=== PATIENT | female | born 1990 | race Two or more races ===

== ENCOUNTER 2024-08-30 05:39 | Emergency (ER) | payer MEDICAID, SELFPAY ==
--- NOTE | 2024-08-30 05:42 | EKG_ITS ---
[facility] Test Date: 2024-08-30 Pat Name: AC MO Department: Room: - Gender: Female Food Processor: : 1990 Requested By: ED Temporary Provider Order Number: [id number] Reading MD: ED Temporary Provider Measurements Intervals [place] Rate: 70 P: 44 IN: 149 QRS: 14 QRSD: 79 T: 72 QT: 375 QTc: 407 Interpretive Statements SINUS RHYTHM WITH SINUS ARRHYTHMIA No previous ECG available for comparison /store/S0/[id number]/[id number].pdf
[2024-08-30 05:53] VITALS: BP 156/84; PULSE 82; RESP 18; TEMP 36.8; O2SAT 98
--- NOTE | 2024-08-30 05:58 | PD.EDRME ---
Rapid Medical Screening Exam RME Arrival date/time: 08/30/24 05:39 33-year-old female presents emergency department complaining of epigastric pain that radiates to her back and worsen when she takes a deep breath also associated with nausea. Chief Complaint: Chest Pain Vital signs: Vital Signs Temperature 98.3 F 08/30/24 05:53 Pulse Rate 82 08/30/24 05:53 Respiratory Rate 18 08/30/24 05:53 Blood Pressure 156/84 H 08/30/24 05:53 Pulse Oximetry (%) 98 08/30/24 05:53 Vital signs reviewed by provider: Yes
--- NOTE | 2024-08-30 06:11 | XR_ITS ---
Examination: AP chest single view Technique: AP portable upright chest single view Exam date and time: August 30, 2024 0709 hrs. Indications: Onset chest pain today. Findings: Normal heart size. Lungs are clear. The osseous structures are intact Impression: No active disease
[2024-08-30] MEDS: KETOROLAC INJ 30 MG/ML VIAL IVP (06:19)
--- NOTE | 2024-08-30 06:37 | PD.EDCHEST ---
ED Chest Pain RME/HPI General Chief Complaint: Chest Pain Stated Complaint: CHEST PAIN Time Seen by Provider: 08/30/24 06:04 Arrival date/time: 08/30/24 05:39 RME / HPI RME / HPI narrative: 08/30/24 05:39 33-year-old female presents emergency department complaining of epigastric pain that radiates to her back and worsen when she takes a deep breath also associated with nausea. This section includes all my notes and documentations, including HPI, PE, and ED course. Cole Jaquez MD HPI: 33-year-old female here with a couple week history of anterior chest pain with possible lump in the right breast. No nausea or vomiting. No fever or chills. No cough. No shortness of breath. No other complaints ROS: All negative except as documented in HPI. Physical Exam: General: Alert and oriented. Appears uncomfortable. Eyes: Conjunctivae and lids clear. ENT: No nasal congestion. Neck: Supple. Heart: RRR. Lungs: No respiratory distress. Good air movement. No rhonchi, wheezing, rales. Chest: Palpation of the anterior chest in the right breast reproduces her pain with equivocal lump/mass. Abdomen: Soft and nontender. Skin: Warm and dry. Neuro: Alert and oriented X 3. I reviewed all diagnostic test results. My interpretation of the EKG is sinus rhythm with no ST?T changes. My interpretation of the chest x-ray is no acute findings. Blood tests unremarkable, including negative troponin/D-dimer/BNP. At this point, diagnoses include chest wall pain. Treatment here included Toradol 30 mg IV. Significant improvement noted. Recommended supportive care and more outpatient workup. Based on my best medical judgment, made decision no further evaluation or treatment indicated at this time. Patient understands and agrees to the discharge instructions customized and printed, see below. Discharge instructions from Dr. Jaquez: 1. After extensive evaluation, there is no life-threatening condition.? Such as heart attack or pulmonary embolism (blood clots in your lungs) or pneumothorax (collapsed lung). 2. Your pain is originating from the chest wall and not from an internal organ.? The chest wall has many joints and muscles between the ribs, so sprains and strains are common.?? 3. Apply ice or heat if helpful.? Tylenol/ibuprofen as needed. 4. See a private doctor on 08/31/2024 for recheck and further care. Ask to review all test results and official radiology reports, to make sure you receive all necessary follow-ups and monitoring. To make sure there is no serious underlying heart condition, ask to help you get more tests for your heart that cannot be done here in the ER.? Such as Holter Monitor (cardiac monitoring at home from a day to even a month), heart stress test (on treadmill or with medication), echocardiogram (imaging of your heart structures), heart catherization (checking for blockages in your heart arteries), and a referral to see a It Application Administrator.? And for your right breast pain, ask for help with ultrasound and mammogram. 5. Seek immediate medical care with worsening or with any concerns.?? Cole Jaquez MD Related Data Home Medications ?Medication ?Instructions ?Recorded ?Confirmed prenat.vits,jg,bia-bmic-gwriw 1 tab PO QDAY 01/12/21 01/12/21 Previous Rx's ?Medication ?Instructions ?Recorded acetaminophen 300 mg-codeine 30 mg 2 tab PO Q8H PRN pain #20 tabs 08/30/24 tablet ibuprofen 800 mg tablet 800 mg PO Q8H PRN pain #30 tabs 08/30/24 Allergies Allergy/AdvReac Type Severity Reaction Status Date / Time No Known Allergies Allergy Verified 01/12/21 19:56 Course Quality Measures none Orders Category Date Time Status EKG (ED ONLY) *Do not use* NOW Care 08/30/24 05:42 Completed EKG (ED ONLY) *Do not use* NOW Care 08/30/24 06:11 Completed Saline [Insert IV] NOW Care 08/30/24 06:10 Active EKG (ED Only) Stat Exams 08/30/24 05:42 Draft EKG (ED Only) Stat Exams 08/30/24 06:11 Ordered XR chest 1V portable Stat Exams 08/30/24 06:11 Completed BNP [B-Type Natriuretic Peptide] Stat Lab 08/30/24 06:19 Completed CBC Stat Lab 08/30/24 06:19 Completed CMP [Comprehensive Metabolic Panel] Stat Lab 08/30/24 06:19 Completed D-Dimer Stat Lab 08/30/24 06:19 Completed HCG,Qualitative Serum Stat Lab 08/30/24 06:19 Completed Lipase Stat Lab 08/30/24 06:19 Completed Magnesium Stat Lab 08/30/24 06:19 Completed Troponin I Stat Lab 08/30/24 06:19 Completed Ketorolac Inj [Toradol Inj] Med 08/30/24 05:57 Discontinued 30 mg IM X1 ONE Ketorolac Inj [Toradol Inj] Med 08/30/24 06:10 Discontinued 30 mg IVP X1 ONE Ondansetron Odt [Zofran Odt] Med 08/30/24 05:57 Discontinued 4 mg PO X1 ONE Vital Signs Vital signs: Vital Signs Temperature 98.3 F 08/30/24 05:53 Pulse Rate 82 08/30/24 05:53 Respiratory Rate 18 08/30/24 05:53 Blood Pressure 156/84 H 08/30/24 05:53 Pulse Oximetry (%) 98 08/30/24 05:53 Chest Pain Patient data External records reviewed:: [facility] previous records Clinical information provided by:: patient Social determinants that could affect healthcare access:: none Patient has the following chronic illnesses:: None How is presenting disease/condition affected by chronic disease/condition?: no chronic disease Evaluation data The following diagnostics were reviewed and interpreted by me:: lab results, radiology exam(s) and EKG tracing(s) (My interpretation of the EKG: NSR (70 bpm) with no ST-T changes. Cole Jaquez MD) Lab and/or radiology exams considered but not ordered:: None Interpretation Summary: Normal diagnostics Medications / Prescriptions Medications or Prescriptions considered but not ordered:: None Medication administrations:: Medication Administration History Discontinued Medications Ketorolac Tromethamine (Ketorolac Inj 60 Mg/2 Ml Vial) 30 mg IM X1 ONE Stop: 08/30/24 05:58 Last Admin: 08/30/24 06:10 Dose: Not Given Documented By: SF Non-Admin Reason: Cancelled by Provider Ketorolac Tromethamine (Ketorolac Inj 30 Mg/Ml Vial) 30 mg IVP X1 ONE Stop: 08/30/24 06:11 Last Admin: 08/30/24 06:19 Dose: 30 mg Documented By: CLAYTON Ondansetron HCl (Ondansetron Odt 4 Mg Tabrap) 4 mg PO X1 ONE; Protocol Stop: 08/30/24 05:58 Last Admin: 08/30/24 06:10 Dose: Not Given Documented By: SF Non-Admin Reason: Cancelled by Provider Toradol Consultations Consultation(s) initiated? (list below): No Diagnosis Chest Pain Differential Diagnosis: pneumothorax, stable angina, unstable angina pectoris, atypical chest pain, st elevation myocardial infarction and costochondritis Most likely diagnosis given after review of the tests above:: Chest wall pain Admission Indicated Admission indicated?: not indicated Explain why admission is indicated or not indicated:: There is no criteria for admission. Admission Request Was there a request for admission?: No Disposition Plan Disposition Plan: Discharge Discharge Attestation Discharge Attestation: The patient and all family members were given an opportunity to ask questions and understood the discharge instructions. Discharge instructions specifically effects, indications for sooner follow up or return to the emergency department, and the expected course of current diagnosis. Patient condition: Stable Discharge Plan Plan Patient Disposition: HOME (Self Care) Prescriptions/Referrals Prescriptions/Med Rec: New acetaminophen-codeine 300-30 mg tablet 2 tab PO Q8H MDD 6 PRN (Reason: pain) Qty: 20 0RF ibuprofen 800 mg tablet 800 mg PO Q8H PRN (Reason: pain) Qty: 30 0RF No Action Vitamin Tablet 1 tab PO QDAY Referrals: No Primary/Family,Physician [Primary Care Provider] - In 1 week Problem List Clinical Impression: Chest wall pain Patient/Caregiver Discharge Instructions Discharge Activity: activity as tolerated Education Materials: ED Chest Pain, Uncertain Cause Additional Instructions: Discharge instructions from Dr. Jaquez: 1. After extensive evaluation, there is no life-threatening condition.? Such as heart attack or pulmonary embolism (blood clots in your lungs) or pneumothorax (collapsed lung). 2. Your pain is originating from the chest wall and not from an internal organ.? The chest wall has many joints and muscles between the ribs, so sprains and strains are common.?? 3. Apply ice or heat if helpful.? Tylenol/ibuprofen as needed. 4. See a private doctor on 08/31/2024 for recheck and further care. Ask to review all test results and official radiology reports, to make sure you receive all necessary follow-ups and monitoring. To make sure there is no serious underlying heart condition, ask to help you get more tests for your heart that cannot be done here in the ER.? Such as Holter Monitor (cardiac monitoring at home from a day to even a month), heart stress test (on treadmill or with medication), echocardiogram (imaging of your heart structures), heart catherization (checking for blockages in your heart arteries), and a referral to see a It Application Administrator.? And for your right breast pain, ask for help with ultrasound and mammogram. 5. Seek immediate medical care with worsening or with any concerns.?? Print Language: Tajik Stand Alone Forms: Carine Award Info., Patient Portal Info Letter
[2024-08-30 06:54] LABS: Basophils # (Auto) 0.1 Thou/mm3 (0.0-0.2); Basophils % (Auto) 1 % (0-2.5); Eosinophils # (Auto) 0.2 Thou/mm3 (0.0-0.5); Eosinophils % (Auto) 2 % (0-10); Hematocrit 41.9 % (36.0-46.0); Hemoglobin 14.1 g/dL (12.0-16.0); Immature Granulocytes % (Auto) 1 % (0-0); Immature Granulocytes Auto 0.05 Thou/mm3 (0.00-0.00); Lymphocytes # (Auto) 2.5 Thou/mm3 (1.0-4.8); Lymphocytes % (Auto) 25 % (10-50); Mean Corpuscular HGB Conc 33.7 g/dl (31.0-37.0); Mean Corpuscular Hemoglobin 28.8 pg (25.0-35.0); Mean Corpuscular Volume 86 fL (80-100); Monocytes # (Auto) 0.6 Thou/mm3 (0.0-0.8); Monocytes % (Auto) 6 % (0-12); Neutrophils # (Auto) 6.4 Thou/mm3 (1.8-7.7); Neutrophils % (Auto) 65 % (37-80); Nucleated Red Blood Cell % 0 /100 WBC (0); Platelet Count 298 Thou/mm3 (140-440); RDW Standard Deviation 41.4 fL (36.4-46.3); Red Blood Count 4.89 Miln/mm3 (4.00-5.20); White Blood Count 9.9 Thou/mm3 (3.6-11.0)
[2024-08-30 07:12] LABS: D-Dimer < 250 ng/mL (<600)
[2024-08-30 07:19] LABS: HCG,Qualitative Serum Negative
[2024-08-30 07:38] LABS: B-Type Natriuretic Peptide 22 pg/mL (0-100)
[2024-08-30 08:00] LABS: Alanine Aminotransferase 22 U/L (10-49); Albumin, Serum 4.7 gm/dL (3.5-5.0); Albumin/Globulin Ratio 1.7 (1.2-2.2); Anion Gap 9 (7-16); Aspartate Amino Transferase 15 U/L (0-34); BUN/Creatinine Ratio 20 Ratio (12-20); Bilirubin,Total 0.3 mg/dL (0.3-1.2); Blood Urea Nitrogen 16 mg/dL (9-23); Calcium 9.6 mg/dL (8.3-10.6); Calcium (Corrected) 9.6 mg/dL (8.5-10.1); Chloride 105 mMol/L (98-107); Creatinine (Component) 0.8 mg/dL (0.6-1.3); Globulin 2.8 gm/dL (2.3-3.5); Glucose 110 mg/dL (74-106); Lipase 109 U/L (12-53); Magnesium 1.9 mg/dL (1.6-2.6); Osmolality,Calculated 281 (275-295); Potassium 3.8 mMol/L (3.4-5.1); Sodium 140 mMol/L (136-145); Total Protein 7.5 gm/dL (5.7-8.2); Troponin I < 0.002 ng/mL (0.0-0.045); eGFR > 60 See Note
[2024-08-30 08:06] VITALS: BP 116/87; PULSE 67; RESP 18; TEMP 36.5; O2SAT 98
[2024-08-30 08:14] LABS: Alkaline Phosphatase 56 U/L (46-116)
== END 2024-08-30 09:02 | disposition home or self-care (01) ==
PROVIDERS: Emergency Provider Emergency Medicine
DX: R07.89 Other chest pain (principal); R10.13 Epigastric pain
CPT/HCPCS: 36415; 71045; 80053; 81001; 83690; 83735; 83880; 84484; 84703; 85025; 85379; 93005; 96374; 99284; J1885